=== PATIENT | female | born 1965 | race Caucasian/White ===

== ENCOUNTER 2020-05-06 13:14 | Emergency (ER) | payer MEDICAID, SELFPAY ==
[~2020-05-06] VITALS: Ht 162.6 cm; Wt 81.6 kg
[2020-05-06 13:15] VITALS: BP_SYST 125
[2020-05-06 13:48] VITALS: BP_SYST 125
== END 2020-05-06 13:48 | disposition home or self-care (01) ==
LOC: SED 13:14
DX: Z03.818 Encounter for observation for suspected exposure to other biological agents ruled out (principal)
CPT/HCPCS: 99283; C9803; U0003